=== PATIENT | female | born 1995 | race Caucasian/White ===

== ENCOUNTER 2017-06-30 21:53 | Emergency (ER) | payer BC ==
--- NOTE | ~2017-06-30 | ER ---
PATIENT'S NAME: ULISES MARTINEZ [facility] AGE: 22 Y [address] ROOM: [place] [id number] LOCATION: [facility] ADMIT DATE: 06/30/2017 ER/Outpatient Report DISCHARGE DATE: 06/30/2017 FAMILY PHYSICIAN: PHYSICIAN, NO ATTENDING PHYSICIAN: Carolann Bradford TIME OF PATIENT ARRIVAL: 2153 hours. TIME OF PATIENT EVALUATION: 2215 hours. CHIEF COMPLAINT: Left shoulder pain, slight shortness of breath. HISTORY OF PRESENT ILLNESS: This is a 22-year-old female who presents to the ER. She states that for the past 3 days, she has been having some anterior chest wall pain and she has pain in her left upper chest with deep inspiration. She states that she has had no cough, no fever or chills, no sore throat, no nasal congestion. She states her pain does not radiate into her back. She states she has not noticed any wheezing and the pain is not consistent in nature. She states she has never had anything like this before. She did follow up with her primary care physician for similar symptoms in her upper abdomen and she has also had similar symptoms at that time. They thought she had some acid reflux, so she was started on some Prilosec. She states that medication has helped her abdominal discomfort. ALLERGIES: NO KNOWN ALLERGIES. MEDICATIONS: Please see medication list in nurse's notes. PAST MEDICAL HISTORY: Negative. PAST SURGERIES: None. SOCIAL HISTORY: Denies smoking, drug, or alcohol use. REVIEW OF SYSTEMS: All systems were reviewed and negative with exception those discussed in the PATIENT'S NAME: ULISES MARTINEZ [facility] AGE: 22 Y [address] ROOM: [place] [id number] LOCATION: [facility] ADMIT DATE: 06/30/2017 ER/Outpatient Report DISCHARGE DATE: 06/30/2017 FAMILY PHYSICIAN: PHYSICIAN, NO ATTENDING PHYSICIAN: Carolann Bradford HPI. PHYSICAL EXAMINATION: VITAL SIGNS: Height 5 feet 6 inches stated, weight 47.0 kg taken, blood pressure is 132/70, pulse 88, respirations 18, temperature 98.9 degrees tympanically, and saturations 98% on room air. Alvaro Coma Score is 15. GENERAL: Alert, calm, well-developed female, in no acute distress. HEENT. Head: Normocephalic. Eyes: Pupils are equal and reactive to light. She does display moist mucous membranes. NECK: Supple. No lymphadenopathy. LUNGS: Clear to auscultation bilaterally. HEART: Regular rate and rhythm. ABDOMEN: Soft, nontender. She has good bowel sounds throughout. No masses were palpated. MUSCULOSKELETAL: I cannot elicit any pain with palpation over her anterior chest wall. She has no pain with range of motion of her left shoulder. SKIN: Warm, dry, and intact. LABORATORY DATA: CBC: White count is 7.0, hemoglobin is 12.0, platelets is 241, AST is 3.2, INR is 1.04. CMS: Potassium 3.6, sodium 140, otherwise, unremarkable. Magnesium is 2.3. CPK is 73, CK-MB is 0.5, troponin I is less than 0.040, TSH is 3.60. H pylori was negative. EKG shows sinus rhythm. Chest x-ray was negative for any infiltrate. IMPRESSION: Anterior chest wall pain. ASSESSMENT AND PLAN: Did monitor the patient for quite some time. The patient remained comfortable and had no recurrent episodes of her pain. We will dismiss her to home. She needs to continue to monitor symptoms. Tylenol and ibuprofen as needed for pain. Follow up with primary care physician for followup care. The patient and patient's friend understand and agree with care. KATERINE FOY PA-C FOR MD UBALDO BAER/phong /[id number] d: t: 07/05/17 1349, OUTPATIENT REPORT
[2017-06-30 22:45] LABS: BASOPHIL % 0.6 %; EOSINOPHIL # 0.2 K/uL (0.0-0.5); EOSINOPHIL % 3.4 %; HEMATOCRIT 37.4 % (33.0-46.0); IMMATURE GRANULOCYTE % 0.1 %; LYMPHOCYTE # 2.9 K/uL (0.8-4.0); LYMPHOCYTE % 41.5 %; MCH 26.9 pg (27.0-34.0); MCHC 32.1 gm/dL (32.0-36.5); MCV 83.9 fl (83.0-98.0); MONOCYTE # 0.6 K/uL (0.0-1.0); MONOCYTE % 8.9 %; MPV 10.1 fl (9.4-12.4); NEUTROPHIL # (ANC) 3.2 K/uL (1.8-7.8); NEUTROPHIL % 45.5 %; NRBC % 0 /100WBC (0-0.00); PLATELET COUNT 241 K/uL (150-450); RBC 4.46 M/uL (3.50-5.00); RDW-CV 13.4 % (11.9-14.6)
[2017-06-30 22:54] LABS: INR - (THERAPEUTIC) 1.04 (0.92-1.07); PROTIME 10.9 SECONDS (9.8-11.4); PTT 29 SECONDS (25-32)
[2017-06-30 23:05] LABS: ALK PHOS 44 IU/L (33-138); ALT 18 IU/L (12-78); ANION GAP 9.6 (10.0-19.0); AST 20 IU/L (10-40); BLOOD UREA NITROGEN 13 mg/dL (6-24); CALCIUM 8.3 mg/dL (8.5-10.5); CHLORIDE 108 mMol/L (96-110); CO2 26 mMol/L (22-32); CPK 73 IU/L (21-215); CREATININE 0.8 mg/dL (0.5-1.1); MAGNESIUM 2.3 mg/dL (1.8-2.6); POTASSIUM 3.6 mMol/L (3.7-5.1); SODIUM 140 mMol/L (135-145); TOTAL BILIRUBIN 0.2 mg/dL (0.0-1.5)
== END 2017-06-30 23:28 | disposition disaster alternative care site (69) ==
LOC: GMED 21:53
PROVIDERS: Physician Assistant Medical
DX: R07.89 Other chest pain (principal); Z79.899 Other long term (current) drug therapy